=== PATIENT | male | born 1985 | race Caucasian/White ===

== ENCOUNTER 2019-04-09 05:48 | Day surgery (SDC) | payer OTHER ==
[2019-04-09] VITALS (13 sets, daily range): BP systolic 140–166; BP diastolic 67–97; PULSE 72–84; RESP 11–20; Ht 188 cm; Wt 131.0 kg
[~2019-04-09] VITALS: Ht 188 cm; Wt 131.0 kg
--- NOTE | 2019-04-09 06:43 | PREAC ---
Date/Time of Note Date/Time of Note DATE: 04/09/19 TIME: 06:41 Anesthesia Eval and Record Evaluation Time Pre-Procedure Interview DATE: 04/09/19 TIME: 06:41 Age 33 Sex male NPO: 8 hrs Preoperative diagnosis L4-L5 Discopathy Planned procedure Microdisectomy L4-L5 Past Medical History Past Medical History: Includes Cardio: HTN GI: Obesity Surgery & Anesthesia Issues No known issue Meds Anticoagulation: No Beta Navneet within 24 hr: No Reason Beta Navneet not given: Pt. not on B-Navneet Meds reviewed: Yes Allergies Allergies Reviewed: Yes Labs/Studies Labs Reviewed: Reviewed by anesthesiologist test: N/A Pre-procedure Exam Airway: Adequate mouth opening Mallampati: Mallampati III Teeth: Normal Lung: Normal Heart: Normal ASA Physical Status ASA physical status: 2 Emergency: None Planned Anesthetic General/MAC: ETT Pre-operative Attestations Prior to commencing anesthesia and surgery, the patient was re-evaluated, there was verification of: *The patient's identity *The results of appropriate recent lab work and preoperative vital signs *The above evaluation not changing prior to induction *Anesthetic plan, risk benefits, alternative and complications discussed with patient/family; questions answered; patient/family understands, accepts and wishes to proceed. GORDON SYED MD April 09, 2019 06:43
[2019-04-09] MEDS ORDERED: HYDROmorphONE 0.5 MG/0.5 ML SYG IV ONE (06:52)
[2019-04-09] MEDS ORDERED: AMLO-145 ORAL (06:54)
[2019-04-09] MEDS ORDERED: LISI10TA2 PO (06:54)
[2019-04-09] MEDS ORDERED: HYDR-3601 ORAL (06:54)
[2019-04-09] MEDS ORDERED: GABA300C16 PO (06:54)
[2019-04-09] MEDS ORDERED: GABA300C16 ORAL (06:54)
[2019-04-09] MEDS ORDERED: MIDAZOLAM 1 MG/ML 2 ML INJ ONE (06:57)
[2019-04-09] MEDS ORDERED: ROCURONIUM 50 MG INJ ONE (06:57)
[2019-04-09] MEDS ORDERED: CEFAZOLIN 1 GM INJ ONE (06:57)
[2019-04-09] MEDS ORDERED: KETOROLAC 30 MG INJ ONE (06:57)
[2019-04-09] MEDS ORDERED: PROPOFOL 20 ML ONE (06:57)
[2019-04-09] MEDS ORDERED: SUCCINYLCHOLINE CHLORIDE 100 MG/5 ML SYG IV ONE (06:57)
[2019-04-09] MEDS ORDERED: ONDANSETRON 4 MG INJ ONE (06:57)
[2019-04-09] MEDS ORDERED: PHENYLephrine (100 MCG/ML) 10ML SYG ONE (06:58)
[2019-04-09] MEDS ORDERED: LACTATED RINGER'S 1,000 ML IV SCH (07:30)
[2019-04-09] MEDS ORDERED: CEFAZOLIN 2 GM/50 ML (PMX) 50 ML IVPB SCH (07:30)
[2019-04-09] MEDS ORDERED: GELATIN SIZE 100 SPONGE ONE ×2 (07:43→08:47)
[2019-04-09] MEDS ORDERED: POLYMYXIN/BACITRACIN 1L IRRIG ONE (07:43)
[2019-04-09] MEDS ORDERED: THROMBIN 5000 UNIT VIAL ONE ×2 (07:43→08:47)
[2019-04-09] MEDS ORDERED: BUPIVACAINE 0.5%/EPI (SDV) 30 ML INJ ONE (07:43)
--- NOTE | 2019-04-09 07:55 | HPN ---
Date/Time of Note Date/Time of Note DATE: 04/09/19 TIME: 07:55 Interval H&P Admission Note Pt. seen H&P reviewed: No system changes PRISCILLA JIM MD April 09, 2019 07:55
[2019-04-09] MEDS ORDERED: BETAMET NA PHOS/AC(6 MG/ML) 5ML INJ ONE (10:09)
--- NOTE | 2019-04-09 10:52 | PDOCDIS ---
Discharge Instructions CONDITION [id number] Patient Condition: Wbini0e Good HOME CARE INSTRUCTIONS: [id number] Diet Instructions: Igyta0d Regular ACTIVITY: [id number] Activity Restrictions: [id number] Avoid heavy lifting [id number] Bathing Restrictions: Bgdap0t Shower FOLLOW UP/APPOINTMENTS Follow-up Plan Follow-up with Dr. Jim in 2 weeks PRISCILLA JIM MD April 09, 2019 10:52
[2019-04-09] MEDS ORDERED: ACETAMINOPHEN 325 MG TAB PO PRN (11:00)
[2019-04-09] MEDS ORDERED: HYDROmorphONE 0.5 MG/0.5 ML SYG IV PRN (11:00)
[2019-04-09] MEDS ORDERED: NALOXONE (0.4 MG/ML) INJ IV PRN (11:00)
[2019-04-09] MEDS ORDERED: NACL 0.9% 3 ML SYG IV SCH (11:00)
[2019-04-09] MEDS ORDERED: AL HYDROX/MG HYDROX/SIMETH 30 ML CUP PO PRN (11:00)
[2019-04-09] MEDS ORDERED: PROCHLORPERAZINE 10 MG TAB PO PRN (11:00)
[2019-04-09] MEDS ORDERED: HYDROCODONE/APAP (5/325) TAB PO PRN ×2 (11:00)
[2019-04-09] MEDS ORDERED: ONDANSETRON 4 MG INJ IV PRN (11:00)
--- NOTE | 2019-04-09 11:05 | OPR ---
Date/Time of Note Date/Time of Note DATE: 04/09/19 TIME: 10:55 Operative Report Free Text/Dictation DATE OF OPERATION: 04/09/2019 PREOPERATIVE DIAGNOSES: 1. Right sided L4-L5 lateral recess stenosis with L5 radiculopathy 2. Right sided L4-5 HNP w/ L5 radiculopathy 3. Morbid Obesity (BMI 37.1 kg/m2 w/ HTN) POSTOPERATIVE DIAGNOSES: 1. Right sided L4-L5 lateral recess stenosis with L5 radiculopathy 2. Right sided L4-5 HNP w/ L5 radiculopathy 3. Morbid Obesity (BMI 37.1 kg/m2 w/ HTN) OPERATION PERFORMED: 1. Right sided L4-L5 kameron-laminectomy, medial facetectomy, and foraminotomy 2. Right sided L4-5 microdiskectomy SURGEON: Priscilla Jim MD APPRENTICESHIP CONSULTANT: MATTEO Hayes ANESTHESIA: General endotracheal ESTIMATED BLOOD LOSS: 25 mL SURGICAL INDICATION: The patient is a 33 year-old male who presents with a several month history of worsening right lower extremity pain with right sided L5 radiculopathy. He was found to have right sided lateral recess stenosis at L4-L5 w/ an HNP which correlated well with his symptoms. The patient had failed conservative treatment. Risks, benefits, and alternatives to a right sided L4-5 microdecompression and diskectomy were explained to the patient and they wished to proceed. Risks explained included but were not exclusive of bleeding, infection, cauda equina syndrome, nerve injury, dural tear, iatrogenic instability requiring fusion, recurrent disc herniation, fracture, vascular injury, bowel injury, stroke, heart attack and pulmonary embolism. DESCRIPTION OF TECHNIQUE: The patient was identified in the preoperative area a nd taken to the operating room. Rapid induction of general endotracheal anesthesia was performed. The patient was given 2 g of cefazolin for prophylaxis. The patient was then placed in the prone position on the Grady frame on a Bob flat top table with all prominences well padded. The back was prepped and draped in the usual sterile manner. Using a spinal needle and intraoperative fluoroscopy, the appropriate level was clearly identified (L4- L5). The skin was injected using 0.25% Marcaine with epinephrine. Longitudinal midline incision was then created using a 10 blade. Further dissection through soft tissue was performed using electrocautery down to the right spinous processes .Dissection was taken down the right L4 lamina and over the facet joint capsule. A self-retaining retractor was applied. Again, intraoperative fluoroscopy confirmed the level. The high-speed bur was used to thin the right L4 lamina. Kerrison rongeurs were then used to resect a portion of the lamina, and a portion of the medial facet and the bone overlying the foramen. Ligamentum flavum was also resected using the Kerrison rongeurs. Care was taken to protect the thecal sac throughout the decompressive procedure. The traversing L5 nerve root and dura were gently retracted medially using a nerve root retractor. The extruded disk fragment was identified. An annulotomy was made using a 15 blade. The extruded fragment was removed using a series of pituitaries. The disk was taken down to a stable base. No other loose fragments were identified. Palpation with a ball-tip probe did not reveal any further stenosis in the central, subarticular, or foraminal areas. The right L4 and L5 pedicles were palpated using a dago to ensure a pedicle to pedicle decompression. The traversing L5 nerve root was directly visualized and noted to be decompressed. The cephalad and caudad extent of the decompression were also confirmed using ball-tip probes and intraoperative fluoroscopy. Meticulous attention was then paid towards hemostasis using FloSeal as well as Gelfoam and thrombin. Care was taken to remove all FloSeal and Gelfoam prior to wound closure. The fascia was then closed using 0 Vicryl in an interrupted fashion. Subcutaneous tissue was closed using 2-0 Vicryl in an interrupted fashion. The skin was closed using a running 4-0 Monocryl stitch. The wound was dressed using Dermabond and a 4x4 sterile gauze. The patient was returned to the supine position. He was extubated immediately postoperatively and taken to the recovery room in stable condition. The patient is morbidly obese with a BMI of 37.1 kg/m2 which made dissection and decompression more difficult due to his body habitus. This operation took approximately 45 minutes longer due to the patient's body habitus. Procedure Date: April 09, 2019 Preoperative Diagnosis 1. Right sided L4-L5 lateral recess stenosis with L5 radiculopathy 2. Right sided L4-5 HNP w/ L5 radiculopathy 3. Morbid Obesity (BMI 37.1 kg/m2 w/ HTN) Postoperative Diagnosis 1. Right sided L4-L5 lateral recess stenosis with L5 radiculopathy 2. Right sided L4-5 HNP w/ L5 radiculopathy 3. Morbid Obesity (BMI 37.1 kg/m2 w/ HTN) Operation/Procedure Performed 1. Right sided L4-L5 kameron-laminectomy, medial facetectomy, and foraminotomy 2. Right sided L4-5 microdiskectomy Surgeon see signature line Inspector Mechanical MATTEO Bates Anesthesia Type: general Estimated Blood Loss: 10 - 50 ml's Transfusion none Specimen L4-5 disk Grafts/Implants none Complications none Pt Condition Post Procedure: stable Disposition: PACU Procedure Description DESCRIPTION OF TECHNIQUE: The patient was identified in the preoperative area and taken to the operating room. Rapid induction of general endotracheal anesthesia was performed. The patient was given 2 g of cefazolin for prophylaxis. The patient was then placed in the prone position on the Grady frame on a Bob flat top table with all prominences well padded. The back was prepped and draped in the usual sterile manner. Using a spinal needle and intrao perative fluoroscopy, the appropriate level was clearly identified (L4-L5). The skin was injected using 0.25% Marcaine with epinephrine. Longitudinal midline incision was then created using a 10 blade. Further dissection through soft tissue was performed using electrocautery down to the right spinous processes .Dissection was taken down the right L4 lamina and over the facet joint capsule. A self-retaining retractor was applied. Again, intraoperative fluoroscopy confirmed the level. The high-speed bur was used to thin the right L4 lamina. Kerrison rongeurs were then used to resect a portion of the lamina, and a portion of the medial facet and the bone overlying the foramen. Ligamentum flavum was also resected using the Kerrison rongeurs. Care was taken to protect the thecal sac throughout the decompressive procedure. The traversing L5 nerve root and dura were gently retracted medially using a nerve root retractor. The extruded disk fragment was identified. An annulotomy was made using a 15 blade. The extruded fragment was removed using a series of pituitaries. The disk was taken down to a stable base. No other loose fragments were identified. Palpation with a ball-tip probe did not reveal any further stenosis in the central, subarticular, or foraminal areas. The right L4 and L5 pedicles were palpated using a dago to ensure a pedicle to pedicle decompression. The traversing L5 nerve root was directly visualized and noted to be decompressed. The cephalad and caudad extent of the decompression were also confirmed using ball-tip probes and intraoperative fluoroscopy. Meticulous attention was then paid towards hemostasis using FloSeal as well as Gelfoam and thrombin. Care was taken to remove all FloSeal and Gelfoam prior to wound closure. The fascia was then closed using 0 Vicryl in an interrupted fashion. Subcutaneous tissue was closed using 2-0 Vicryl in an interrupted fashion. The skin was closed using a running 4-0 Monocryl stitch. The wound was dressed using Dermabond and a 4x4 sterile gauze. The patient was returned to the supine position. He was extubated immediately postoperatively and taken to the recovery room in stable condition. The patient is morbidly obese with a BMI of 37.1 kg/m2 which made dissection and decompression more difficult due to his body habitus. This operation took approximately 45 minutes longer due to the patient's body habitus. PRISCILLA JIM MD April 09, 2019 11:05
--- NOTE | 2019-04-09 11:19 | PAC ---
Date/Time of Note Date/Time of Note DATE: 04/09/19 TIME: 11:18 Post-Anesthesia Notes Post-Anesthesia Note Last documented vital signs Vital Signs Date Temp Pulse Resp B/P (MAP) Pulse Ox O2 O2 Flow FiO2 Time Delivery Rate 04/09/19 98.0 11:16 04/09/19 77 20 152/97 95 Room Air 06:48 (115) Activity: WNL Respiratory function: WNL Cardiovascular function: WNL Mental status: Baseline Pain reasonably controlled: Yes Hydration appropriate: Yes Nausea/Vomiting absent: Yes GORDON SYED MD April 09, 2019 11:19
[2019-04-09] MEDS ORDERED: OXYCODONE/ACETAMINOPHEN (5/325) TAB PO PRN (11:30)
[2019-04-09] MEDS: ONDANSETRON 4 MG INJ IV PRN ×2 (11:38→12:50)
[2019-04-09] MEDS: HYDROmorphONE 1 MG/5 ML IV SYRINGE IV PRN ×3 (11:39→11:51)
[2019-04-10] MEDS ORDERED: DOCUSATE SODIUM 100 MG CAP PO SCH (09:00)
== END 2019-04-09 16:40 | disposition home or self-care (01) ==
LOC: SDS 05:48
PROVIDERS: ATTEND Orthopaedic Surgery
DX: M48.061 Spinal stenosis, lumbar region without neurogenic claudication (principal); M51.16 Intervertebral disc disorders with radiculopathy, lumbar region; I10 Essential (primary) hypertension; E66.9 Obesity, unspecified
CPT/HCPCS: 63030; 72100; 86850; 86900; 86901; 97161; J0690; J0702; J1170; J1885; J2250; J2370; J2405; J3010